=== PATIENT | female | born 1985 | race Asian ===

== ENCOUNTER 2017-03-18 14:38 | Emergency (ER) | payer OTHER ==
--- NOTE | 2017-03-18 14:48 | ED Physician Chart ---
Chief Complaint/HPI - Patient Information Date Seen:: 03/18/17 Time Seen:: 14:45 Chief Complaint:: Exposure to pt's vomitus. 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 Pt accidentally had splash to left eye when she disposed a patient's vomitus in a toilet. Pt washed her left eye with ample amount of normal saline immediately. Pt feels well without discomfort or irritation to her left eye. Immunizations for hepatitis B and tetanus are UTD. Allergies:: Allergies Allergy/AdvReac Type Severity Reaction Status Date / Time No Known Allergies Allergy Verified 03/18/17 14:44 Vitals:: see Nurse Note. Historian:: Patient Family MD/PCP:: Dr. Chris LMP:: Now. Review:: Nurse's Note Reviewed Review of Systems - Review of Systems General/Constitutional: No fever, No chills, No weight loss, No weakness, No edema, No loss of appetite Skin: No skin lesions, No rash, No bruising Head: No headache, No light-headedness Eyes: No loss of vision, No pain, No diplopia ENT: No earache, No nasal drainage, No sore throat Neck: No neck pain, No swelling, No stiffness, No mass noted Cardio Vascular: No chest pain, No palpitations, No edema Pulmonary: No SOB, No cough, No wheezing GI: No nausea, No vomiting, No pain Musculoskeletal: No bone or joint pain, No back pain, No muscle pain Endocrine: No polyuria, No polydipsia Psychiatric: No prior psych history Hematopoietic: No bruising, No lymphadenopathy Allergic/Immuno: No urticaria, No angioedema Neurological: No syncope, No focal symptoms, No weakness, No headache Past Medical History - Past Medical History Past Medical History: Asthma/COPD Family History: None Social History: Non Smoker, No Alcohol, No Drug Use, Single, Employed, Other ( lives with her mother.) Employment:: ER nurse. Surgical History: None Psychiatricy History: None Medication: Reviewed Family Medical History - Family Member Mother History Unknown: Yes Physical Exam - Physical Examination General/Constitutional: Awake, Well-developed, well-nourished, Alert, No distress, GCS 15, Non-toxic appearing, Ambulatory Other Gen/Cons comments:: Breathes comfortably, speaks clearly, interacts normally, and ambulates without difficulty. Head: Atraumatic Eyes: Lids, conjuctiva normal, PERRL, EOMI Other Eyes comments:: Both eyes are normal without hyperemia, swelling, or exudate. Skin: Nl inspection, No rash, No skin lesions, No ecchymosis, Well hydrated, No lymphadenopathy ENMT: External ears, nose nl, Nasal exam nl, Oropharynx nl Neck: Nontender, Full ROM w/o pain, No nuchal rigidity, No mass, No stridor Respiratory: Nl effort/Exclusion, Clear to Auscultation, No Wheeze/Rhonchi/Rales Cardio Vascular: RRR, No murmur, gallop, rubs, NL S1 S2 GI: No tenderness/rebounding/guarding, No organomegaly, Normal BS's, Nondistended Other GI comments:: Abdomen is soft. Neuro/Psych: Alert/oriented (oriented x 3.), Judgement/insight normal, Mood normal, Normal gait, No focal deficits ED Septic Shock - . Is Septic Shock (SBP<90, OR Lactate>4 mmol\L) present?: No Reassessment (Disposition) - Reassessment Reassessment:: 1625 Pt remains well and stable. Doctor's First Report of Occupational Injury has been completed and filed. - Diagnosis Diagnosis:: Exposure to body fluid in left eye. No acute illness. Well female adult. - Aftercare/Follow up Instructions Aftercare/Follow-Up Instructions:: Refer to Discharge Instructions Notes:: Occupational and eye safety instructions given. Labs ordered: HIV, HAV IgM, HBsAg, HCV, HBcoreIgM. Source: HBsAg, anti HCV, HIV. Continue present care. [facility] day. Return to ER immediately if condition worsens or if any further questions/ problems. Medication Prescribed:: None - Patient Disposition Discharge/Transfer:: discharge back to work. Time:: 16:30 Condition at Disposition:: Stable ED Discharge Plan - Patient Disposition Admit/Discharge/Transfer: Other Condition at Disposition: Unchanged Instructions: Body Fluid Exposure
[2017-03-21 18:10] LABS: HEP B CORE IGM Negative (Negative); HEP C RNA NAA QUALITATIVE Negative (Negative)
== END 2017-03-18 16:37 | disposition short-term general hospital (02) ==
LOC: ER 14:38
DX: Z77.21 Contact with and (suspected) exposure to potentially hazardous body fluids (principal); J45.909 Unspecified asthma, uncomplicated; J44.9 Chronic obstructive pulmonary disease, unspecified
CPT/HCPCS: 36415-UA; 86703-TC; 86705-90; 86709-90; 87340-90; 87521-90; Z7502